=== PATIENT | male | born 1970 | race Caucasian/White ===

== ENCOUNTER → 2020-03-29 00:39 | Outpatient (CLI) | payer OTHER, SELFPAY ==
[2020-03-29 20:38] LABS: SARS-CoV-2 RNA PCR Negative
== END ==
PROVIDERS: PCP Family Medicine; Visit Provider Internal Medicine Gastroenterology
DX: Z01.812 Encounter for preprocedural laboratory examination (principal); Z20.822 Contact with and (suspected) exposure to COVID-19
CPT/HCPCS: C9803; U0003; U0005

== ENCOUNTER 2020-04-01 02:16 | Day surgery (SDC) | payer OTHER, SELFPAY ==
[2020-03-20 14:58] VITALS: BMI 32.5
[2020-04-01 06:33] VITALS: BP 155/94; PULSE 88; RESP 18; TEMP 36.4; O2SAT 99; BMI 33.2
[2020-04-01] MEDS: LACTATED RINGERS 1,000 ML 150 ML IV CONT (06:56)
--- NOTE | 2020-04-01 06:56 | P.PNAN_ITS ---
Anes - Initial Pre Proc Eval Procedure: Operation Date: 04/01/20 07:30 Proposed Procedures p Screening Colonoscopy - Sj Hale MD Date/Time: 04/01/20 06:56 Surgeon: Sj Hale MD Pre Op Diagnosis: Neoplasm Screening Patient Data Age: 49 Gender: M Height: 5 ft 8 in Weight: 99.2 kg Last Vital Signs Temp 36.4 C L 04/01/20 06:33 Pulse 88 04/01/20 06:33 Resp 18 04/01/20 06:33 BP 155/94 H 04/01/20 06:33 Pulse Ox 99 04/01/20 06:33 Allergies Allergy/AdvReac Type Severity Reaction Status Date / Time No Known Allergies Allergy Verified 04/01/20 06:32 Home Medications Medication Instructions Recorded Confirmed Type aspirin [Aspir-81] 81 mg PO DAILY 03/20/20 03/20/20 History atorvastatin 40 mg PO DAILY 03/20/20 03/20/20 History sodium,potassium,mag sulfates See Rx Instructions .ROUTE 03/20/20 Rx [Suprep Bowel Prep Kit] .COMPLEX #1 ml Patient hx anesthesia problems: none Family hx anesthesia problems: none [facility] Past Medical History Medical History (Updated 04/01/20 @ 06:56 by Abel De La Fuente MD) Hyperlipidemia AP (obstructive sleep apnea) Social History Social History Smoking status: Never smoker Alcohol intake: never Substance use: never Substance use type: does not use Living arrangements: with family Spiritual care concerns: No Anes - Eval Final PreProcedure Day of Procedure 04/01/20 06:56 Patient weight: obese Heart: regular rate and rhythm Lungs: clear to auscultation Airway: Mallampati scale class II Neurological: alert and oriented Last oral intake: >/= 8 hours ASA classification: III Emergent: no Anesthetic plan: proceed Anesthesia type and monitoring: general GIVS and standard monitoring Informed Consent: The patient's anesthetic plan and its attendant risks and benefits were discussed with the patient/family/POA. Questions were solicited and answers provided to the satisfaction of the patient/family/POA.
--- NOTE | 2020-04-01 07:32 | WPDGICN ---
Assessment and Plan Assessment and plan (1) Encounter for screening colonoscopy: Code(s): Z12.11 - Encounter for screening for malignant neoplasm of colon Status: Acute Assessment and Plan: Screening colonoscopy is advised because of his age. There is a family history of colon cancer in grandparents for this reason colonoscopy will be performed. Further recommendations will be given after endoscopy. GI Consult Note Consult date/time: 04/01/20 07:32 HPI: Vitaliy Armendariz is a 49 year old male Seen in evaluation for screening colonoscopy. Patient states his current weight appetite bowel movements are normal. He denies abdominal pain. He has been in general good health. Family history is significant his grandfather had colon cancer. Patient is unaware of any first-degree relatives that have had colon polyps. Review of Systems Review of Systems: All systems reviewed & are unremarkable except as noted in HPI and below PMFSH Past Medical History Medical History (Updated 04/01/20 @ 07:34 by Sj Hale MD) Hyperlipidemia AP (obstructive sleep apnea) Social History Social History Smoking status: Never smoker Alcohol intake: never Substance use: never Substance use type: does not use Living arrangements: with family Spiritual care concerns: No Meds Home Medications and Allergies Home Medications Medication Instructions Recorded Confirmed Type aspirin [Aspir-81] 81 mg PO DAILY 03/20/20 03/20/20 History atorvastatin 40 mg PO DAILY 03/20/20 03/20/20 History sodium,potassium,mag sulfates See Rx Instructions .ROUTE 03/20/20 Rx [Suprep Bowel Prep Kit] .COMPLEX #1 ml Allergies Allergy/AdvReac Type Severity Reaction Status Date / Time No Known Allergies Allergy Verified 04/01/20 06:32 Vital Signs Vital Signs - 24 hr 04/01/20 06:33 Temperature 97.5 F L Pulse Rate 88 Respiratory Rate 18 Blood Pressure 155/94 H Pulse Oximetry 99 Exam Narrative: Exam Narrative: Physical exam reveals patient to be alert. Vital signs stable. HEENT exam unremarkable. Lungs are clear to auscultation and percussion. Heart is without murmur or extra sounds. Abdominal exam bowel sounds are present soft nontender with no organomegaly. Digital external rectal exam is normal.
[2020-04-01 07:54] VITALS: BP 129/84; PULSE 77; RESP 16; O2SAT 95
[2020-04-01 08:04] VITALS: BP 142/92; PULSE 73; RESP 16; O2SAT 100
[2020-04-01 08:14] VITALS: BP 120/75; PULSE 66; RESP 16; O2SAT 97
== END 2020-04-01 08:25 | disposition home or self-care (01) ==
PROVIDERS: PCP Family Medicine; Visit Provider Internal Medicine Gastroenterology
PROC: 0DJD8ZZ Inspection of Lower Intestinal Tract, Via Natural or Artificial Opening Endoscopic (ICD-10-PCS; CPT 45378; principal; 2020-04-01 07:30)
DX: Z12.11 Encounter for screening for malignant neoplasm of colon (principal); D12.2 Benign neoplasm of ascending colon; D12.5 Benign neoplasm of sigmoid colon; E78.5 Hyperlipidemia, unspecified; K64.8 Other hemorrhoids; G47.33 Obstructive sleep apnea (adult) (pediatric); Z80.0 Family history of malignant neoplasm of digestive organs
CPT/HCPCS: 45385; 88305; C9803; J2704; J7120; U0003; U0005

== ENCOUNTER 2021-09-08 11:12 | Outpatient (CLI) | payer OTHER, SELFPAY ==
--- NOTE | ~2021-09-08 | CT_ITS ---
EXAMINATION: CT abdomen pelvis w con DATE: 09/08/2021 11:38 INDICATION: Abdominal pain TECHNIQUE: Computed tomography (CT) of the abdomen and pelvis was performed with 100 mL Omnipaque-350 intravenous contrast. Automated exposure control and iterative reconstruction technique were employe d. The dose-length product was 1010.00 mGy-cm. COMPARISON: None. FINDINGS: Lower thorax: Unremarkable Liver: Diffusely low density parenchyma. Biliary/Gallbladder: Gallbladder is normal. No bile duct dilation. Pancreas: No mass or duct dilation. Spleen: Normal. Adrenals:No mass. Kidneys: No mass, stone, or hydronephrosis. GI tract: No small or large bowel dilation. Normal appendix. Mesentery/Peritoneum: No ascites, mass, or free air. Retroperitoneum: No mass. Mild atherosclerotic abdominal aortic and/or arterial calcifications. Pelvis: Pelvic organs are within normal limits. Soft Tissues: Small fat-containing umbilical hernia with mild localized inflammatory fat stranding. Bones: No acute osseous finding. IMPRESSION: Steatosis. Small, fat-containing, mildly inflamed umbilical hernia. Reviewed, dictated and finalized at location K.
== END 2021-09-08 11:13 ==
LOC: MICIMG 11:14
PROVIDERS: PCP Family Medicine; Visit Provider Family Medicine
DX: R10.9 Unspecified abdominal pain (principal)
CPT/HCPCS: 74177; Q9967

== ENCOUNTER → 2022-05-26 13:39 | Outpatient (CLI) | payer OTHER, SELFPAY ==
--- NOTE | ~2022-05-26 | CT_ITS ---
EXAMINATION: CT abdomen pelvis w con DATE: 05/26/2022 14:05 INDICATION: Unspecified abdominal pain. TECHNIQUE: Computed tomography (CT) of the abdomen and pelvis was performed with 100 mL Omnipaque 350 intravenous contrast. Automated exposure control and iterative reconstruction technique were employe d. The dose-length product was 1064.13 mGy-cm. COMPARISON: CT abdomen and pelvis 09/08/2021 FINDINGS: The visualized portions of the lung bases demonstrate airspace opacities and nodules in the lower lobes and lingula, consistent with pneumonia. Calcified pulmonary nodules are consistent with old adenomatous disease. No pleural effusion. The heart size is normal. No pericardial effusion. The liver, gallbladder, spleen, pancreas, adrenal glands, and left adrenal gland are normal. There is a 6 mm cyst in right kidney. There is diverticulosis of the colon without evidence of diverticulitis. Th ere are no dilated loops of bowel. The appendix is normal. There are supraumbilical and umbilical calvin tral hernias with fat stranding. There are no pathologically enlarged lymph nodes. There is no free i ntraperitoneal fluid. There is mild thoracic spondylosis. IMPRESSION: 1. Umbilical and supraumbilical ventral hernias with worsened fat stranding, consistent with inflamma tion versus fat necrosis. 2. Airspace opacities and nodules in the basilar lower lobes and lingula, consistent with pneumonia. Reviewed, dictated and finalized at location A. IMPRESSION: 1. Umbilical and supraumbilical ventral hernias with worsened fat stranding, co nsistent with inflammation versus fat necrosis. 2. Airspace opacities and nodules in the basilar lower lobes and lingula, consi stent with pneumonia.
== END ==
PROVIDERS: PCP Registered Nurse; Visit Provider Registered Nurse
DX: R10.9 Unspecified abdominal pain (principal); K42.9 Umbilical hernia without obstruction or gangrene; K43.9 Ventral hernia without obstruction or gangrene; R91.8 Other nonspecific abnormal finding of lung field
CPT/HCPCS: 74177; Q9967